=== PATIENT | male | born 1965 | race Caucasian/White ===

== ENCOUNTER 2019-01-15 14:32 | Emergency (ER) | payer BC, SELFPAY ==
[2019-01-15 14:33] VITALS: BP 144/73; PULSE 68; RESP 16; TEMP 36.6; O2SAT 97; BMI 24.5
--- NOTE | 2019-01-15 15:13 | CT_ITS ---
STUDY: CT BRAIN WITHOUT CONTRAST REASON FOR EXAM: Male, 53 years old. Headache. Unsteady gait beginning this morning. RADIATION DOSAGE (If Supplied By Facility): CTDIvol = ( 44.99 ) mGy, DLP = ( 796.11 ) mGycm TECHNIQUE: Transaxial CT imaging of the brain was performed without administration of intravenous contrast material. Individualized dose optimization techniques were used for this CT. COMPARISON: No relevant priors. FINDINGS: Normal soft tissue structures. Normal calvarium. Normal size ventricles and extra-axial spaces for the patient's age. Normal white matter tracts of the cerebral hemispheres. Normal basal ganglia and thalami. Normal brainstem. Normal cerebellum. There is no intracranial hemorrhage. There are no findings of an acute ischemic infarction. There is mucoperiosteal reaction within the ethmoid air cells. CT/Brain/Head without Contrast IMPRESSION: 1. Normal unenhanced CT scan of the brain. 2. Ethmoid sinusitis. Electronically Signed: Murali Dalton DO at 16:09 EDT Tel [phone], Service support ,
--- NOTE | 2019-01-15 15:14 | ED.VISSUMM ---
- ER Visit Summary Date of Service: 01/15/19 Chief Complaint: My equilibrium is off History of Present Illness: The patient is a 53 M history of arthritis and high cholesterol. Patient states that she woke up this morning he just felt like his equilibrium is off. Denies room spinning. Also has a mild frontal headache. No vomiting. No head trauma. He is on no blood thinners. No history of TIA or CVA. No cardiac history. States he is never felt like this before. Physical Examination: Middle-aged male. No acute distress. Initial blood pressure 144/73. Otherwise vital signs stable afebrile. No distress. HEENT exam normal. Pupils round reactive light. No facial droop. Normal speech. No signs of trauma. Neck nontender. Lungs clear to auscultation bilaterally. Heart regular rhythm no murmur. Abdomen soft nontender. Remedies moves all 4. Calves nontender no edema. Neurologically he is awake alert with no focal motor or sensory deficits. NIH score of 0. Normal motor strength to both hands. Dorsi plantar flexion intact. Fingertip to nose all within normal limits. Test Results: CBC normal. Chemistries unremarkable. Gap of [address] brain no acute abnormality. Ethmoid sinus congestion. Read by the radiologist and reviewed by me. Emergency Department Course and Treatment: Middle-aged male unremarkable exam. Screening labs and CT brain to be obtained. Repeat exam patient is doing well. He thinks this is related to anxiety and stress. I do not feel he needs to be admitted to the hospital with an unremarkable exam and normal labs and imaging. He will be discharged home to follow-up as an outpatient. Treatment Plan: Follow-up with his primary care physician. Disposition: Discharge Impression: Acute dizziness uncertain etiology This note was generated with [employer] software. It may contain incorrect words, spelling, and punctuation that were not noted in review of the chart prior to signing ED Disposition - Plan for ED Patient: Referrals: [facility] Doctor,Out of [NON-STAFF] -
[2019-01-15 15:34] LABS: Absolute Lymphocyte Count 2.95 X10^3/ul (0.83-4.51); Basophil# 0.03 X10^3/uL; Basophil% 0.3 % (0-1); Eosinophil# 0.47 X10^3/uL; Eosinophils% 5.2 % (0-5); Hematocrit 48.8 % (40-54); Hemoglobin 16.3 g/dl (13.0-16.5); Lymphocyte # 2.95 X10^3/ul (4.0); Lymphocyte % 32.6 % (19-41); Mean Corp Hgb Conc 33.4 g/gl (32-36); Mean Corpuscular Hgb 31.2 pg (27.0-32.0); Mean Corpuscular Volume 93.5 fL (80-94); Mean Platelet Vol. 10.6 fl (6.2-12.0); Monocyte# 0.55 X10^3/uL; Monocyte% 6.1 % (0-10); Neutrophil # 5.03 X10^3/uL (2.7-7.7); Neutrophil % 55.7 % (47-70); Platelet Count 244 K/mm3 (150-450); RBC Distribution Width CV 13.5 % (11.6-14.6); RBC Distribution Width SD 45.8 fl (35.1-43.9); Red Blood Count 5.22 M/mm3 (4.6-6.2)
[2019-01-15 15:36] LABS: POSITIVE COUNT NO; POSITIVE DIFFERENTIAL NO; POSITIVE MORPHOLOGY NO
[2019-01-15 15:45] LABS: Anion Gap 2 (5-15); BUN 10 mg/dL (7-18); BUN/Creat Ratio 11.6 RATIO (10-20); Calcium,Total 8.7 mg/dL (8.5-10.1); Chloride 110 mmol/L (98-107); Creatinine, Serum 0.86 mg/dL (0.70-1.30); EST Glomerular Filtration Rate 99 mL/min (>60); Est Glom Filt Rate - Afr Amer 120 mL/min (>60); Estimated Creatinine Clearance 108.23 ml/min; Glucose 87 mg/dL (74-106); Potassium 4.2 mmol/L (3.5-5.1); Sodium Level 140 mmol/L (136-145)
--- NOTE | 2019-01-15 16:31 | ED.DEP ---
ED Disposition - Plan for ED Patient: Disposition: Home or Assisted Living Instructions: ED Dizziness [facility] Referrals: [facility],Out of [NON-STAFF] - 3-5 Days Additional Instructions: Your labs and CAT scan were unremarkable today. Follow-up with your primary care physician.
[2019-01-15] MEDS: Acetaminophen 500 MG Tablet 1000 MG PO (16:45)
[2019-01-15 16:46] VITALS: BP 122/86; PULSE 84; RESP 18
== END 2019-01-15 16:55 | disposition home or self-care (01) ==
PROVIDERS: Emergency Provider Emergency Medicine; Family Provider Family Medicine; PCP Family Medicine
DX: R42 Dizziness and giddiness (principal); E78.00 Pure hypercholesterolemia, unspecified; F17.210 Nicotine dependence, cigarettes, uncomplicated
CPT/HCPCS: 70450; 80048; 85025; 99284

== ENCOUNTER → 2019-01-30 08:45 | Outpatient (CLI) | payer BC, SELFPAY ==
[2019-01-15 14:33] VITALS: BMI 24.5
--- NOTE | 2019-01-30 08:47 | ECHOCS_ITS ---
Reason For Study: Possible TIA Procedure This was a 2D Doppler, Color Flow transthoracic echocardiogram. The study was technically difficult. Contrast injection was performed. Exam performed in department. Left Ventricle Normal size and thickness. Left ventricular systolic function is normal. The estimated ejection fraction is 50-55 %. Normal diastology for age. mild apical hypokinesis. Right Ventricle Normal right ventricle. Normal systolic function. Atria Normal left atrium. Normal right atrium. No doppler evidence for ASD. Mitral Valve There is no mitral valve stenosis. No mitral valve insufficiency. Tricuspid Valve No significant tricuspid stenosis. Unable to estimate RV systolic pressure due to insufficient tricuspid regurgitant envelope. Trivial tricuspid valve insufficiency. Aortic Valve Aortic sclerosis, no stenosis. There is no aortic stenosis. No aortic valve insufficiency. Pulmonic Valve There is no pulmonic valvular stenosis. No pulmonic valve insufficiency. Great Vessels Normal aortic root. Pericardium/Pleural No pericardial effusion. Medication 22 gauge I.V. with prn adaptor inserted into right arm. Diluted definity 4ml given slow IV push to enhance endocardial definition. Performed a rapid injection of agitated mix of 9 cc saline and 1cc air to assess for atrial septal defect. MMode/2D Measurements & Calculations LVIDd: 4.8 cm IVSd: 0.86 cm LAV(MOD-sp4): 30.9 ml LVIDs: 3.8 cm LVPWd: 0.85 cm RVDd: 3.3 cm FS: 21.2 % LVAd ap4: 36.1 cm2 SV(MOD-sp4): 61.6 ml SV(sp4-el): 65.7 ml EDV(MOD-sp4): 123.0 ml EDV(sp4-el): 128.4 ml LVAs ap4: 23.3 cm2 ESV(MOD-sp4): 61.4 ml ESV(sp4-el): 62.7 ml EF(MOD-sp4): 50.1 % EF(sp4-el): 51.2 % LA A4 area: 14.4 cm2 RA A4 area: 15.2 cm2 Time Measurements MV dec time: 0.27 sec Doppler Measurements & Calculations MV E max alexx: 69.6 cm/sec Lat Peak E' Alexx: 11.2 cm/sec Med Peak E' Alexx: 10.2 cm/sec MV A max alexx: 63.6 cm/sec E/E' lat: 6.2 E/E' med: 6.8 MV E/A: 1.1 MV V2 max: 78.3 cm/sec MV P1/2t max alexx: 78.3 cm/sec Ao V2 max: 114.6 cm/sec MV max P.5 mmHg MV P1/2t: 93.6 msec Ao max P.3 mmHg MV V2 mean: 47.7 cm/sec Ao V2 mean: 81.6 cm/sec MV mean P.1 mmHg MV dec slope: 245.1 cm/sec2 Ao mean P.9 mmHg MV V2 VTI: 25.3 cm MVA(P1/2t): 2.4 cm2 Ao V2 VTI: 23.0 cm LV V1 max: 89.7 cm/sec PA V2 max: 85.7 cm/sec LV V1 max P.2 mmHg LV V1 mean P.6 mmHg LV V1 mean: 57.6 cm/sec LV V1 VTI: 19.2 cm Interpretation Summary The study was technically difficult. Diluted definity 4ml given slow IV push to enhance endocardial definition. Left ventricular systolic function is normal. The estimated ejection fraction is 50-55 %. Normal diastology for age. Aortic sclerosis, no stenosis. mild apical hypokinesis No intracardiac clot seen The study was technically difficult. Ordering Physician: Bonita Gaines Referring Physician: Bonita Gaines Performed By: Lalo Saldivar RCS
--- NOTE | 2019-01-30 08:47 | CDU_ITS ---
Reason For Study: TIA Rt. Velocities/BP Lt. Velocities/BP Prox CCA 85.2/26.5 cm/sec. Prox CCA 94.3/34.3 cm/sec. Mid CCA 85.2/31.7 cm/sec. Mid CCA 91.7/36.9 cm/sec. Dist CCA 83.9/31.7 cm/sec. Dist CCA 79.9/34.3 cm/sec. Prox ICA 70.8/29.1 cm/sec. Prox ICA 45.4/19.0 cm/sec. Mid ICA 70.8/26.5 cm/sec. Mid ICA 84.9/84.9/43.2 cm/sec. Dist ICA 79.96/40.8 cm/sec. Dist ICA 78.3/39.9 cm/sec. Rt. ICA/CCA = .9. Lt. ICA/CCA = .9. Prox ECA 82.6/18.6 cm/sec. Prox ECA 85.2/22.6 cm/sec. Rt. Vert. 43.4/21.3 cm/sec. Lt. Vert. 23.8/9.2 cm/sec. Right Extracranial There is intimal thickening but no significant atherosclerotic plaque noted in the right common carotid artery. There is intimal thickening but no significant atherosclerotic plaque noted in the right internal carotid artery. There is intimal thickening but no significant atherosclerotic plaque noted in the right external carotid artery. Antegrade flow is noted in the right vertebral artery. Left Extracranial There is intimal thickening but no significant atherosclerotic plaque noted in the left common carotid artery. There is intimal thickening but no significant atherosclerotic plaque noted in the left internal carotid artery. There is intimal thickening but no significant atherosclerotic plaque noted in the left external carotid artery. Antegrade flow is noted in the left vertebral artery. Procedure Carotid Duplex [id number]. The exam was diagnostic. Exam performed in department. Interpretation Summary No significant atherosclerotic plaque or stenosis noted in the internal carotid arteries bilaterally. Flow within the vertebral arteries is antegrade bilaterally. Ordering Physician: Bonita Gaines Performed By: Montana Perez RVT
== END ==
LOC: CVS 08:45
PROVIDERS: Family Provider Family Medicine; PCP Family Medicine; Referring Provider Family Medicine; Visit Provider Family Medicine
DX: R42 Dizziness and giddiness (principal); F17.200 Nicotine dependence, unspecified, uncomplicated
CPT/HCPCS: 93306; 93880; Q9957; A4216; C8929

== ENCOUNTER 2019-08-16 20:15 | Emergency (ER) | payer BC, SELFPAY ==
[2019-08-16 20:15] VITALS: BP 132/83; PULSE 84; RESP 16; TEMP 36.7; O2SAT 98; BMI 24.5
--- NOTE | 2019-08-16 21:57 | ED.DCSUM_ITS ---
- ER Visit Summary Date of Service: 08/16/19 Chief Complaint: Gum abscess History of Present Illness: The patient is a 53 M patient past medical history. Patient is an abscess on his lower lip and gum for about 2 weeks. Painful. He denies any fever. Physical Examination: Well-appearing middle-aged male. Vital signs are stable afebrile. No trouble swallowing or breathing. HEENT exam. He has very poor dentition. Multiple missing teeth. Decaying teeth and cavities. His lower lip in the midline between the lip and gum there is an abscess. Is tender to palpation. There is no swelling to the face or the neck. No trouble swallowing or breathing. No lymphadenopathy. Lungs clear to auscultation. Heart regular rhythm no murmur. Abdomen soft nontender. Patient is moving all 4 extremities. He is neurovascular intact. Test Results: None Emergency Department Course and Treatment: I was going to I&D the abscess. When I went back into reevaluate the patient ended drained spontaneously on its own. There was no longer any fluctuance he can easily open and close his mouth. This does not need to be drained at this time. Treatment Plan: Pen-Vee K 500 4 times daily for 10 days. Warm salt water gargling. Follow-up with a dentist. Disposition: Discharge Impression: Dental abscess spontaneously drained on its own. This note was generated with [employer] dictation software. It may contain incorrect words, spelling, and punctuation that were not noted in review of the chart prior to signing ED Disposition - Plan for ED Patient: Referrals: Bonita Gaines MD [Primary Care Provider] -
--- NOTE | 2019-08-16 21:59 | ED.DEP ---
ED Disposition - Plan for ED Patient: Disposition: Home or Assisted Living Instructions: Dental Abscess Prescriptions: Penicillin Vk [Pen-Vee K 250MG] 500 mg PO 4X/DAY 10 Days #40 tab Prescription Printed Referrals: Bonita Gaines MD [Primary Care Provider] - As Needed Additional Instructions: Warm salt water gargling 4 times a day. Tylenol Motrin for pain. Follow-up with a dentist. The antibiotic penicillin 4 times a day till gone. Prescriptions written for 10 days.
[2019-08-16] MEDS: Penicillin Vk 250 MG Tablet 500 MG PO (22:07)
[2019-08-16 22:14] VITALS: BP 130/80; PULSE 68; RESP 18; O2SAT 99
== END 2019-08-16 22:16 | disposition home or self-care (01) ==
PROVIDERS: Emergency Provider Emergency Medicine; Family Provider Family Medicine; PCP Family Medicine
DX: K04.7 Periapical abscess without sinus (principal); Z72.0 Tobacco use
CPT/HCPCS: 41800; 64402; 99283

== ENCOUNTER 2019-10-17 23:29 | Emergency (ER) | payer BC, SELFPAY ==
[2019-10-17 23:30] VITALS: BP 100/65; PULSE 77; RESP 15; TEMP 36.4; O2SAT 100; BMI 25.9
--- NOTE | 2019-10-17 23:43 | US_ITS ---
STUDY: SCROTUM ULTRASOUND REASON FOR EXAM: Male, 53 years old. Pain. TECHNIQUE: Ultrasound evaluation of the scrotum was performed with color Doppler and static garcia-scale imaging. COMPARISON: None. FINDINGS: RIGHT Testicle: No mass, normal echogenicity. Mildly increased arterial and venous Doppler flow. Measures 4.7 x 3.1 x 2.6 cm. Epididymis: Mildly hyperemic. Contains an incidental 0.6 cm diameter cyst. Hydrocele: Moderate. Varicocele: None. LEFT Testicle: No mass, normal echogenicity. Normal arterial and venous Doppler flow. Measures 4.2 x 2.2 x 2.2 cm. Epididymis: Unremarkable. Hydrocele: Trace. Varicocele: None. US/Testicular with Arterial Flow IMPRESSION: Right epididymitis/orchitis with moderate right-sided hydrocele. Electronically Signed: Hussain Schwartz, at 1:54 EST Tel , Service support ,
[2019-10-17] MEDS: HYDROmorphone 1 MG/ML Syringe IV (23:55)
[2019-10-17] MEDS: Ondansetron 4 MG/2 ML Vial IV (23:56)
[2019-10-17 23:58] LABS: Mucous, Urine 0 SEEN /hpf (<or=2+)
[2019-10-17 23:59] LABS: Color, Urine Yellow (Yellow); Glucose, Dipstick Normal (Normal); Ketone-Dipstick 50 mg/dl (Negative); Leukocyte Esterase-Dipstick 500 /ul (Negative); Nitrite-Dipstick Negative (Negative); Occult Blood-Urine 150 /ul (Negative); Protein-Dipstick 100 mg/dl (Negative); Urine Bilirubin Dipstick Negative (Negative); Urine Clarity Sl. Cloudy (Clear); Urine Urobilinogen 1 mg/dl (Normal)
[2019-10-18 00:06] LABS: Absolute Lymphocyte Count 3.54 X10^3/uL (0.83-4.51); Absolute Neutrophil Count 11.5 X10^3/uL (2.0-7.7); Basophil# 0.06 X10^3/uL; Basophil% 0.4 % (0-1); Eosinophil# 0.42 X10^3/uL; Eosinophils% 2.6 % (0-5); Hematocrit 48.8 % (40-54); Hemoglobin 15.5 g/dL (13.0-16.5); Lymphocyte # 3.54 X10^3/ul (4.0); Lymphocyte % 21.5 % (19-41); Mean Corp Hgb Conc 31.8 g/dL (32-36); Mean Corpuscular Hgb 29.5 pg (27.0-32.0); Mean Platelet Vol. 10.3 fl (6.2-12.0); Monocyte% 5.5 % (0-10); NRBC Flagged by Analyzer 0 % (0-5); Neutrophil # 11.47 X10^3/uL (2.7-7.7); Neutrophil % 69.6 % (47-70); Platelet Count 260 K/mm3 (150-450); RBC Distribution Width CV 13.7 % (11.6-14.6); Red Blood Count 5.25 M/mm3 (4.6-6.2); White Blood Count 16.5 K/mm3 (4.4-11.0)
[2019-10-18 00:08] LABS: Bacteria 1+ /hpf (None Seen); Red Blood Cells-Urine 0-5 SEEN /hpf (0-5); Squamous Epithelial Cells - UA 0-5 SEEN /hpf (0-5); White Blood Cells 10-25 SEEN /hpf (0-5)
[2019-10-18 00:20] LABS: Anion Gap 4 (5-15); BUN 12 mg/dL (7-18); BUN/Creat Ratio 10.8 RATIO (10-20); Calcium,Total 8.8 mg/dL (8.5-10.1); Chloride 107 mmol/L (98-107); Creatinine, Serum 1.11 mg/dL (0.70-1.30); EST Glomerular Filtration Rate 74 mL/min (>60); Est Glom Filt Rate - Afr Amer 90 mL/min (>60); Estimated Creatinine Clearance 83.86 ml/min; Glucose 111 mg/dL (74-106); Potassium 3.9 mmol/L (3.5-5.1); Sodium Level 139 mmol/L (136-145)
[2019-10-18 01:29] VITALS: BP 155/86; PULSE 86; RESP 16; O2SAT 98
--- NOTE | 2019-10-18 02:05 | ED.DCSUM_ITS ---
- ER Visit Summary Date of Service: 10/18/19 Chief Complaint: Right testicle pain History of Present Illness: The patient is a 53 M with right testicle pain that started around 8 PM. No other symptoms. Physical Examination: Afebrile and vital signs unremarkable. Right testicle is enlarged and exquisitely tender. Scrotum slightly enlarged. Otherwise unremarkable. Test Results: Urinalysis shows UTI. Cultures pending. White count 16.5. He is not septic. Chemistry panel unremarkable. Gonorrhea and Chlamydia testing are pending. Ultrasound showed right epididymitis and orchitis with hydrocele. Emergency Department Course and Treatment: Patient will be treated with Levaquin and Rocephin. Cultures pending. He will be treated with pain medicine and follow-up with urology. Treatment Plan: As above Disposition: Discharge Impression: 1. Right epididymitis/orchitis This note was generated with [employer] dictation software. It may contain incorrect words, spelling, and punctuation that were not noted in review of the chart prior to signing ED Disposition - Plan for ED Patient: Referrals: Bonita Gaines MD [Primary Care Provider] -
--- NOTE | 2019-10-18 02:07 | ED.DEP ---
ED Disposition - Plan for ED Patient: Instructions: Epididymitis, Orchitis Prescriptions: Levofloxacin [Levaquin] 500 mg PO DAILY 9 Days #9 tab Prescription Printed Oxycodone HCl/Acetaminophen [Percocet 5/325] 1 tab PO Q6H PRN PRN 3 Days #12 tab PRN Reason: Pain Prescription Printed Referrals: Galo Keenan MD [STAFF PHYSICIAN] -
[2019-10-18] MEDS: levoFLOXacin 500 MG Tablet PO (02:30)
[2019-10-18] MEDS: Ceftriaxone 500 MG Vial 250 MG IM (02:31)
[2019-10-18 02:48] LABS: Chlamydia Trachomatis by PCR Negative (Negative); Neisserai gonorrhoeae by PCR Negative (Negative); Probe Check PASS; Sample Adequacy Control PASS; Specimen Processing Control PASS
[2019-10-18 02:52] VITALS: BP 110/72; PULSE 86; RESP 17; O2SAT 97
--- NOTE | 2019-10-18 02:52 | ED.RN ---
SHOT TIME OBSERVED FOR GREATER THAN 15MINUTES, NO REACTION NOTED BY THIS RN. PT D/C.
== END 2019-10-18 02:54 | disposition home or self-care (01) ==
LOC: ED 10-18 00:03
PROVIDERS: Emergency Provider Emergency Medicine; PCP Family Medicine
DX: N45.3 Epididymo-orchitis (principal); Z72.0 Tobacco use
CPT/HCPCS: 76870; 80048; 81001; 85025; 87086; 87088; 87186; 87491; 87591; 93976; 96372; 96374; 96375; 99284; A4216; J2405

== ENCOUNTER 2019-11-20 02:43 | Emergency (ER) | payer BC, SELFPAY ==
[2019-11-20 02:44] VITALS: PULSE 97; RESP 20; TEMP 36.5; O2SAT 99; BMI 25.1
[2019-11-20 02:49] VITALS: BP 94/78; PULSE 97; RESP 20; TEMP 36.5; O2SAT 99
--- NOTE | 2019-11-20 02:50 | US_ITS ---
STUDY: SCROTUM ULTRASOUND REASON FOR EXAM: Male, 53 years old. RT TESTICULAR PAIN right testicular pain TECHNIQUE: Ultrasound evaluation of the scrotum was performed with color Doppler and static garcia-scale imaging. COMPARISON: None. FINDINGS: RIGHT TESTICLE INTRATESTICULAR: There is a normal size of the right testicle. The right testicle measures 3.2 x 2.8 x 2.4 cm. There is a homogenous echotexture. There is normal arterial and normal venous vascularity. There is no demonstrated right testicular mass or cyst. EXTRATESTICULAR: The epididymis is enlarged. The epididymis head measures 1.4 x 1.1 x 1.2 cm. There is increased (hyperemic) vascularity of the epididymis. There is no demonstrated epididymal cystic structure. There is no demonstrated hydrocele. There is no demonstrated varicocele. There is no demonstrated extratesticular mass or cyst. LEFT TESTICLE INTRATESTICULAR: There is a normal size of the left testicle. The left testicle measures 4.2 x 2.6 x 2 cm. There is a homogenous echotexture. There is normal arterial and normal venous vascularity. There is no demonstrated left testicular mass or cyst. EXTRATESTICULAR: The epididymis is normal in size. The epididymis head measures 0.9 x 0.8 x 0.8 cm. There is normal vascularity of the epididymis. There is no demonstrated epididymal cystic structure. There is no demonstrated hydrocele. There is no demonstrated varicocele. There is no demonstrated extratesticular mass or cyst. US/Testicular with Arterial Flow IMPRESSION: Right epididymitis. Electronically Signed: Junior Lerner, at 4:07 EDT Tel , Service support ,
[2019-11-20] MEDS: HYDROcodone Bitartrate/Apap 5/325 Tablet PO (02:53)
[2019-11-20 02:54] VITALS: BP 120/79
[2019-11-20 02:54] LABS: Mucous, Urine 0 SEEN /hpf (<or=2+); Red Blood Cells-Urine 0 SEEN /hpf (0-5)
[2019-11-20 02:59] LABS: Color, Urine Yellow (Yellow); Glucose, Dipstick Normal (Normal); Ketone-Dipstick Negative (Negative); Leukocyte Esterase-Dipstick 500 /ul (Negative); Nitrite-Dipstick Negative (Negative); Occult Blood-Urine 50 /ul (Negative); Protein-Dipstick Negative (Negative); Urine Bilirubin Dipstick Negative (Negative); Urine Clarity Clear (Clear); Urine Urobilinogen Normal (Normal); Urine pH 6.5 (5.0 - 8.0)
[2019-11-20 03:09] LABS: Bacteria RARE /hpf (None Seen); Squamous Epithelial Cells - UA 0-5 SEEN /hpf (0-5); White Blood Cells 5-10 SEEN /hpf (0-5)
--- NOTE | 2019-11-20 03:50 | ED.DCSUM_ITS ---
- ER Visit Summary Date of Service: 11/20/19 Chief Complaint: Right testicular pain History of Present Illness: The patient is a 53 M who has right testicular pain. Started an hour ago. Denies any falls or trauma. It is worse when he touches it. He took nothing for this at home. He denies fevers. No dysuria. He had epididymoorchitis at the end of October. He took antibiotics and it got better. He did not follow-up with urology. Physical Examination: Vital signs are reviewed. exam reveals a penis that is normal. His right testicle is diffusely tender. It is enlarged. His scrotum shows no edema or erythema. The rest of his exam is unremarkable. Test Results: Shows 5-10 white blood cells. Ultrasound reveals epididymitis Emergency Department Course and Treatment: Patient was given [place]. He does have epididymitis. No signs of torsion. He was given a dose of morphine for continued pain and Levaquin. I will send him home with Percocet and Levaquin. He will be given urology follow-up. Treatment Plan: [] Disposition: Discharge Impression: Right epididymitis This note was generated with [employer] dictation software. It may contain incorrect words, spelling, and punctuation that were not noted in review of the chart prior to signing ED Disposition - Plan for ED Patient: Disposition: Home or Assisted Living Instructions: Epididymitis Prescriptions: levoFLOXacin tablet [Levaquin] 500 mg PO DAILY #13 tab Transmission Status: Pending to [id number] [place] Oxycodone HCl/Acetaminophen [Percocet 5/325] 1 tablet PO Q6H PRN PRN 3 Days #12 tablet PRN Reason: Pain Transmission Status: Sent to [id number] [place] Referrals: Bonita Gaines MD [Primary Care Provider] -
[2019-11-20] MEDS: Morphine 4 MG/ML Syringe SC (04:19)
[2019-11-20] MEDS: levoFLOXacin 500 MG Tablet PO (04:19)
[2019-11-20 04:22] VITALS: BP 125/74; PULSE 99; RESP 18; TEMP 36.6; O2SAT 100
== END 2019-11-20 04:40 | disposition home or self-care (01) ==
PROVIDERS: Emergency Provider Emergency Medicine; PCP Family Medicine
DX: N45.1 Epididymitis (principal); Z72.0 Tobacco use; E78.00 Pure hypercholesterolemia, unspecified; Z79.899 Other long term (current) drug therapy
CPT/HCPCS: 76870; 81001; 93976; 96372; 99284

== ENCOUNTER 2020-04-27 02:10 | Emergency (ER) | payer BC, SELFPAY ==
[2020-04-27 02:11] VITALS: BP 141/83; PULSE 89; RESP 16; TEMP 36.6; O2SAT 98; BMI 26.4
[2020-04-27 02:17] VITALS: BP 128/80
--- NOTE | 2020-04-27 02:47 | RAD_ITS ---
STUDY: X-RAY - LUMBAR SPINE REASON FOR EXAM: Male, 54 years old. SLIPPED 2 WEEKS AGO AT WORK -- CAUGHT HIMSELF BEFORE ACTUALLY FALLING -- C/O SEVERE LBP X 2 WEEKS TECHNIQUE: 3 view(s) of the lumbar spine were obtained. COMPARISON: None FINDINGS: There is a transitional vertebra, which we will assume represents complete sacralization of the L5 vertebra. Normal lumbar lordosis. There is no substantial scoliosis. There is grade 1 retrolisthesis at the L1-2 and L2-3 levels, which appears to be on a degenerative basis. Normal vertebral bodies. There is multilevel spondylosis. There is multi-level degenerative disc disease with multi-level disc space narrowing. There is atherosclerotic calcification of the abdominal aorta without a demonstrated aneurysm. RAD/Lumbar Spine 2 or 3 Views IMPRESSION: Degenerative changes of the spine, as detailed above. Minimal retrolisthesis at the L1-2 and L2-3 levels, on a degenerative basis. No demonstrated fracture. Electronically Signed: Pardeep Cat MD at 3:24 EDT , Service support ,
--- NOTE | 2020-04-27 02:48 | ED.DCSUM_ITS ---
History of Present Illness Chief Complaint: Back Informant: Patient Narrative: Patient stated that he slipped on some point while at work 2 weeks ago and has been having pain in his low back. No radiation. Tried to tough it out but the pain is been persistent. He has been occasionally taking anti-inflammatories but not consistently. Current severity is moderate. Worse by movement. Relieved by laying flat and resting. Has had difficulty working after the incident. No history of disc herniation per patient. No loss of bowel or bladder or other red flag symptoms of cauda equina. Past Medical History - Allergies and Home Meds Allergies/Adverse Reactions: Allergies erythromycin base Allergy (Verified 04/27/20 02:11) Alicia Primary Care Physician: Bonita Gaines MD [Primary Care Provider] - Prior records reviewed: Yes Past Medical History: - - Reviewed Surgical History: - - Reviewed Smoking Status: Current every day smoker Alcohol: None Drugs: None Review of Systems General: Denies: Chills, Fever, Sweats Eyes: Denies: Visual changes - bilaterally, Diplopia ENT: Denies: Rhinorrhea, Sore throat Cardiovascular: Denies: Chest pain, Palpitations Respiratory: Denies: Dyspnea, Cough, Dyspnea on exertion Gastrointestinal: Denies: Abdominal pain, Nausea, Vomiting, Diarrhea, Melena, Hematochezia Genitourinary: Denies: Dysuria, Hematuria, Frequency Musculoskeletal: Reports: Back pain. Denies: Extremity Pain Skin: Denies: Rash, Wounds Neurological: Denies: Headache, Weakness, Numbness Physical Exam Vital Signs/Narrative: Vital Signs Temp Pulse Resp BP Pulse Ox 04/27/20 02:17 128/80 H 04/27/20 02:11 97.9 F 89 16 141/83 H 98 General: Well nourished, Well developed, No Acute Distress Head: Normocephalic, Atraumatic Eyes: Perrl, EOMI ENT: Moist mucous membranes, No rhinorrhea Neck: Supple, Nontender Cardiovascular: Regular rate, Regular rhythm, No murmurs Respiratory: No distress, CTA bilaterally, Chest nontender Abdomen: Soft, Nontender, Nondistended, Normal bowel sounds Back: Normal Inspection, Spinal tenderness, - - Patient has lower lumbar diffuse tenderness. Decreased range of motion secondary to pain all cates Extremities: Nontender, No edema Skin: Normal color, No rash Neurological: Alert, Oriented x3, Cranial nerves II-XII grossly intact, Normal Strength, Normal Sensation Psychological: Normal affect, Normal Mood Diagnostic/Tx/Re-eval - Medical Decision Making Patient given a shot of Toradol and morphine. Lumbar x-ray series obtained. No fracture noted. Chronic degenerative changes noted. Patient did feel better after treatment. We will follow-up with Worker's Comp. He may need outpatient MRI. He could have a herniated disc. This could be a muscle strain as well. There is no evidence of cauda equina. I do not feel he needs an emergent MRI from the emergency department and will be given a short course of Vicodin for home ED Disposition - Plan for ED Patient: Disposition: Home or Assisted Living Diagnosis: Lumbar back pain Instructions: ED Back Pain Acute or Chronic Prescriptions: Hydrocodone Bitart/Apap 5-325 [[place] 5MG-325MG] 1 - 2 tab PO Q6H PRN PRN 3 Days #10 tab PRN Reason: Pain Prescription Printed Referrals: [facility] [GROUP OF PHYSICIANS] -
[2020-04-27] MEDS: Morphine 4 MG/ML Syringe IM (02:55)
[2020-04-27] MEDS: Ketorolac 15 MG/ML Vial IM (02:55)
[2020-04-27 04:00] VITALS: RESP 16
== END 2020-04-27 04:00 | disposition home or self-care (01) ==
PROVIDERS: Emergency Provider Emergency Medicine; PCP Family Medicine
DX: M54.5 Low back pain (principal); F17.200 Nicotine dependence, unspecified, uncomplicated
CPT/HCPCS: 72100; 96372; 99282

== ENCOUNTER → 2020-05-12 07:17 | Outpatient (CLI) | payer OTHER, BC, SELFPAY ==
[2020-05-07 10:38] VITALS: BMI 26.4
--- NOTE | 2020-05-12 07:20 | MRI_ITS ---
STUDY: MRI LUMBAR SPINE WITHOUT CONTRAST REASON FOR EXAM: Male, 54 years old. LUMBAR STRAIN -- fall 1 month ago, pain low back and left buttock TECHNIQUE: Standardized fat and water weighted pulse sequences were obtained in the sagittal and axial planes. COMPARISON: X-ray dated 04/27/2020 FINDINGS: Normal lumbar lordosis. There is no substantial scoliosis. Normal conus medullaris that terminate s at the L1 L1-2: There is moderate disc space narrowing and endplates spondylosis. Mild disc bulge with small (0.5 x 1.5 cm) superiorly directed left paracentral extrusion without significant central canal or foraminal stenosis. L2-3: There is moderate disc space narrowing and endplates spondylosis. Mild disc bulge and retrolisthesis without significant central canal or foraminal stenosis. L3-4: There is moderate disc space narrowing and endplates spondylosis. Moderate disc bulge and minimal retrolisthesis without significant central canal stenosis. There is mild right and mild left foraminal stenosis. L4-5: There is mild disc space narrowing and endplates spondylosis. Moderate disc bulge asymmetric to the right with moderate right foraminal stenosis. No significant central canal or left foraminal stenosis. L5-S1: There is moderate disc space narrowing and endplates spondylosis. Moderate disc osteophyte complex and facet arthropathy asymmetric to the right with moderate right foraminal stenosis. No significant central canal or left foraminal stenosis. Normal visualized sacral ala. MRI/Spine Lumbar (Routine) IMPRESSION: L1/L2: Small left paracentral extrusion without compression. L4/L5: Moderate right foraminal stenosis. L5/S1: Moderate right foraminal stenosis. Electronically Signed: Israel Addison MD at 8:21 EDT Tel , Service support ,
== END ==
PROVIDERS: PCP Family Medicine; Referring Provider Physician Assistant Surgical; Visit Provider Physician Assistant Surgical
DX: S39.012A Strain of muscle, fascia and tendon of lower back, initial encounter (principal)
CPT/HCPCS: 72148

== ENCOUNTER 2020-06-24 12:01 | Emergency (ER) | payer BC, SELFPAY ==
[2020-05-26 13:18] VITALS: BMI 26.4
[2020-06-24 12:02] VITALS: BP 116/78; PULSE 119; RESP 18; TEMP 36.6; O2SAT 99; BMI 25.7
--- NOTE | 2020-06-24 12:16 | CT_ITS ---
STUDY: CT PELVIS WITH CONTRAST REASON FOR EXAM: Male, 54 years old. PERIRECTAL ABCESS RADIATION DOSAGE (If Supplied By Facility): CTDIvol = ( 28.20 ) mGy, DLP = ( 1000.12 ) mGycm TECHNIQUE: Transaxial imaging of the pelvis was performed without oral contrast. IV 100mL Isovue-300 was administered intravenously. Individualized dose optimization techniques were used for this CT. COMPARISON: None. FINDINGS: Normal urinary bladder. There is a 2.4 cm x 2.1 cm fluid collection with irregular margins in the posterior aspect of the perineum in the midline. This may represent a perineal abscess. Incidental note is made of a small right hydrocele. Normal visualized small intestine. There are multiple colonic diverticula of the sigmoid colon consistent with chronic diverticulosis. There is no pelvic fluid. There is no pelvic lymphadenopathy or mass lesion. There is no demonstrated injury of the pelvic arteries. Small umbilical hernia containing fat. There are diffuse degenerative changes of the visualized lumbar spine. CT/Pelvis WITH IV Contrast IMPRESSION: Findings in keeping with a 2.4 cm x 2.1 cm localized abscess in the posterior aspect of the perineum. Sigmoid diverticulosis. Small right hydrocele. Electronically Signed: Marcial Kaur, at 13:38 EDT , Service support ,
--- NOTE | 2020-06-24 12:28 | ED.DCSUM_ITS ---
- ER Visit Summary Date of Service: 06/24/20 Chief Complaint: [Concern for perineal abscess] History of Present Illness: The patient is a 54 M [presents to the emergency department with complaint of swelling to his perineum that started 2 weeks ago. Patient states that he is prone to getting boils. Patient states initially it opened up after a couple of days and drained and felt like all would be resolved. Patient states that over the last 5 days has had increasing pain and discomfort as well as swelling. He denies any fevers. He denies chills or sweats. Patient has no medical history.] Physical Examination: [HEENT-PERRLA, EOMI. Cranial nerves II through XII grossly intact. TMs clear. Mucous membranes moist. No adenopathy. Cardiovascular-regular rate and rhythm without murmur or ectopy Lungs-clear to auscultation, chest wall stable without crepitus or subcu emph ysema Abdomen-normoactive bowel sounds, soft, nontender, no rebound or rigidity, no peritoneal signs. exam-evaluation of patient's perineum reveals that he has some soft tissue fullness in the space between his rectum and scrotum that is tender to palpation. There are some faint erythema noted. Extremities-intact ?4, normal range of motion, normal pulses, atraumatic] Test Results: [CBC with differential obtained showed a white of 12.5, hemoglobin 15, hematocrit 48, placed 250. Chemistries unremarkable. CT scan of the pelvis with IV contrast obtained showed a perineal abscess measuring 2.4 x 2.1 cm with cellulitic changes.] Emergency Department Course and Treatment: [Results discussed with patient. Initially he was medicated with morphine 4 mg and Zofran 4 mg IV for pain. Patient requested sedation for I&D due to the amount of pain he was having to the area. I did discuss case with general surgery and they were comfortable with having me perform the I&D and they be happy to follow-up as an outpatient. Patient was consented for procedural sedation with propofol. He received a total of 100 mg of propofol with good sedation. Using a 11 blade a 2 cm incision was made into the central portion of the suspected abscess and the midline of the perineum. Immediately had return of foul-smelling purulent debris that was free-flowing. Wound was then packed with iodinated gauze. Patient received clindamycin 600 mg IV.] Treatment Plan: [Patient to follow-up with general surgeon on-call in 3 to 4 days. Patient advised to remove packing in 2 days. Advised to return if worsening pain increased swelling, fever, or condition should worsen anyway.] Disposition: [Discharged home in stable condition] Impression: [Perineal abscess with incision and drainage] This note was generated with [employer] dictation software. It may contain incorrect words, spelling, and punctuation that were not noted in review of the chart prior to signing ED Disposition - Plan for ED Patient: Referrals: Bonita Gaines MD [Primary Care Provider] -
[2020-06-24 12:59] LABS: Absolute Lymphocyte Count 1.97 X10^3/uL (0.83-4.51); Absolute Neutrophil Count 9.3 X10^3/uL (2.0-7.7); Basophil# 0.03 X10^3/uL; Basophil% 0.2 % (0-1); Eosinophil# 0.33 X10^3/uL; Eosinophils% 2.6 % (0-5); Hematocrit 47.6 % (40-54); Hemoglobin 15.4 g/dL (13.0-16.5); Lymphocyte # 1.97 X10^3/ul (4.0); Lymphocyte % 15.7 % (19-41); Mean Corp Hgb Conc 32.4 g/dL (32-36); Mean Corpuscular Hgb 29.8 pg (27.0-32.0); Mean Corpuscular Volume 92.1 fL (80-94); Mean Platelet Vol. 10.5 fl (6.2-12.0); Monocyte% 6.4 % (0-10); NRBC Flagged by Analyzer 0 % (0-5); Neutrophil # 9.34 X10^3/uL (2.7-7.7); Neutrophil % 74.8 % (47-70); Platelet Count 250 K/mm3 (150-450); RBC Distribution Width CV 13.3 % (11.6-14.6); RBC Distribution Width SD 45.4 fl (35.1-43.9); Red Blood Count 5.17 M/mm3 (4.6-6.2); White Blood Count 12.5 K/mm3 (4.4-11.0)
[2020-06-24 13:11] LABS: Anion Gap 3 (5-15); BUN 9 mg/dL (7-18); BUN/Creat Ratio 8.8 RATIO (10-20); Calcium,Total 8.8 mg/dL (8.5-10.1); Chloride 107 mmol/L (98-107); Creatinine, Serum 1.02 mg/dL (0.70-1.30); EST Glomerular Filtration Rate 81 mL/min (>60); Est Glom Filt Rate - Afr Amer 98 mL/min (>60); Estimated Creatinine Clearance 90.23 ml/min; Glucose 99 mg/dL (74-106); Potassium 3.9 mmol/L (3.5-5.1); Sodium Level 139 mmol/L (136-145)
[2020-06-24] MEDS: Morphine 4 MG/ML Syringe IV (13:42)
[2020-06-24] MEDS: Ondansetron 4 MG/2 ML Vial IV (13:42)
[2020-06-24 14:21] VITALS: PULSE 89; RESP 18; RESP 22
[2020-06-24 14:30] VITALS: BP 113/80; PULSE 87; RESP 19; O2SAT 97
--- NOTE | 2020-06-24 14:30 | DCINST.ED_ITS ---
ED Disposition - Plan for ED Patient: Instructions: ED Abscess Incision And Drainage Prescriptions: Clindamycin HCl [Cleocin] 300 mg PO Q6H #40 cap Prescription Printed Hydrocodone Bitart/Apap 5-325 [[place] 5MG-325MG] 1 tab PO Q4H PRN PRN 2 Days #10 tab PRN Reason: Pain Prescription Printed Referrals: Bonita Gaines MD [Primary Care Provider] - Matias Landis MD [STAFF PHYSICIAN] - 5-7 Days Additional Instructions: remove packing in 2 days
[2020-06-24] MEDS: Propofol 200 MG/20 ML Vial IV BOLUS (14:33)
[2020-06-24 14:35] VITALS: BP 115/81; PULSE 86; RESP 16; O2SAT 95
[2020-06-24 14:40] VITALS: BP 122/85; O2SAT 96
== END 2020-06-24 14:56 | disposition home or self-care (01) ==
LOC: ED 13:36
PROVIDERS: Emergency Provider Emergency Medicine; PCP Family Medicine
DX: L02.215 Cutaneous abscess of perineum (principal); Z72.0 Tobacco use
CPT/HCPCS: 46050; 72193; 80048; 85025; 96365; 96375; 99281; 99285; J7050; Q9967; A4216; J2405

== ENCOUNTER 2020-10-27 10:46 | Outpatient (RCR) | payer OTHER, BC, SELFPAY ==
--- NOTE | 2020-10-27 11:57 | HP.PTEVAL ---
Patient's Visit Information AMELIA MANN Jr. is a 54 year old M referred to Physical Therapy by Dr. Todd Vargas MD with a diagnosis of LOW BACK STRAIN. Date of Evaluation: 10/27/20 Physical Therapist: Galilea Delacruz PT, Cert MDT - Visit Plan Frequency: 2-3x /Week Duration: 4-6 Weeks Plan: ULTRASOUND, ELECTRICAL STIMULATION, MH/CP, POSTURE CORRECTION/STRENGTHENING, INSTRUCTION IN APPROPRIATE BODY MECHANICS AND ACTIVITY MODIFICATIONS. DLS STARTING WITH A NEUTRAL SPINE PROGRESSING ROM TOLERATED. KASSY LE ROM, STRETCHING AND STRENGTHENING. HEP INSTRUCTION. 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 VERY LABOR INTENSIVE AND FAST PACED REQUIRING BENDING, LIFTING AND TWISTING. WAS PUT ON LIGHT DUTY APR 2020. PRIOR TO GETTING HURT HE WAS DOING THIS JOB FOR ONE YEAR. LIVES WITH BUT SHE CURRENTLY HAS A BROKE HAND. Disability: NO. Present symptoms: CENTRAL AND LEFT LOW BACK PAIN THAT RADIATES DOWN LEG FREQUENTLY TO KNEE AND SOMETIMES TO HEEL AND ARCH OF FOOT. LLE SX'S ARE PAIN, NUMBNESS AND TINGLING. CONSTANT L BUTTOCK NUMBNESS. PATIENT DENIES RIGHT LE SX'S. Present since: APR 12 2020. Pain Scale: WORST 8/10, LEAST 4/10. Currently: 6/10 - PATIENT REPORTS THAT OVER-ALL HE IS WORSENING. HE REPORTS THE PAIN IN HIS BACK IS WORSENING. Commenced as a result of: WAS WALKING BETWEEN TWO MACHINES AT WORK AND SLIPPED ON COOLANT. STATES HE DIDN'T FALL BUT BEATRICE HIS BACK. Symptoms at onset: SHARP LOW BACK PAIN AND BURNING SENSATION IN BACK. Worse: EVERYTHING. WALKING, SITTING TOO LONG, LYING DOWN, STANDING, BENDING, LIFTING, TWISTING. Better: SITTING IN RECLINER IN POSITION, INVERSION TABLE - IT LOOSENS ME UP A LITTLE BIT TO HELP ME FUNCTION BUT NOT TO THE POINT I AM COMFORTABLE. STATES DR. VARGAS AND DR. CERVANTES BOTH TOLD HIM IT IS OK TO CONTINUE USING IT. Disturbed sleep: YES. Previous history/Previous treatment: BACK INJURY 1990 - FULLY RECOVERED. NO BACK SURGERY. NO BACK INJECTIONS. WAS TREATED BY A CHIROPRACTOR AT THAT TIME AND WENT BACK ONE TIME IN NOVEMBER 2019 FOR TINGLING DOWN THE BACK OF LEFT LEG FROM THE KNEE DOWN INTO THE FOOT - EVENTUALLY WENT AWAY AFTER ABOUT A MONTH. NO PHYSICAL THERAPY FOR BACK IN THE PAST. HAS BEEN USING AN INVERSION TABLE TWICE A DAY AT HOME SINCE HURT HIS BACK IN APR 2020. Treatment this episode: CONSULTS WITH [facility], DR. CERVANTES AND DR. VARGAS. PRESCRIBED CELABREX, NEUROTIN 4 TIMES A DAY AND MUSCLE RELAXER NEEDED. NO ADRIANNA'S. STATES DR. CERVANTES RECOMMENDED THEM BUT THEY HAVE NOT BEEN APPROVED. Coughing/sneezing/straining: POSITIVE. Gait: LIMPS. PATIENT REPORTS HIS LEFT LEG ISN'T WORKING RIGHT. STATES HE HAS TO MAKE IT WORK AND IF HE WALKS TOO LONG HE GETS A SHARP PAIN IN HIS LEFT HIP. TIME AND DISTANCE LIMITED. Difficulty initiating urinatin: NO. Accidents: NO. Unexplained weight loss: NO. Imaging: STUDY: MRI LUMBAR SPINE WITHOUT CONTRAST. REASON FOR EXAM: Male, 54 years old. LUMBAR STRAIN -- fall 1 month ago,. pain low back and left buttock. TECHNIQUE: Standardized fat and water weighted pulse sequences were. obtained in the sagittal and axial planes. COMPARISON: X-ray dated 04/27/2020. . FINDINGS: Normal lumbar lordosis. There is no substantial scoliosis. Normal conus. medullaris that terminate s at the L1. L1-2: There is moderate disc space narrowing and endplates spondylosis. Mild disc bulge with small (0.5 x 1.5 cm) superiorly directed left. paracentral extrusion without significant central canal or foraminal. stenosis. L2-3: There is moderate disc space narrowing and endplates spondylosis. Mild disc bulge and retrolisthesis without significant central canal or. foraminal stenosis. L3-4: There is moderate disc space narrowing and endplates spondylosis. Moderate disc bulge and minimal retrolisthesis without significant central. canal stenosis. There is mild right and mild left foraminal stenosis. L4-5: There is mild disc space narrowing and endplates spondylosis. Moderate disc bulge asymmetric to the right with moderate right foraminal. stenosis. No significant central canal or left foraminal stenosis. L5-S1: There is moderate disc space narrowing and endplates spondylosis. Moderate disc osteophyte complex and facet arthropathy asymmetric to the. right with moderate right foraminal stenosis. No significant central canal. or left foraminal stenosis. Normal visualized sacral ala. . MRI/Spine Lumbar (Routine). IMPRESSION: L1/L2: Small left paracentral extrusion without compression. . L4/L5: Moderate right foraminal stenosis. . L5/S1: Moderate right foraminal stenosis. . PMH: HTN. Recent major surgery: 2 RIGHT AND ONE L ROTATOR CUFF REPAIRS. RIGHT BICEPS REPAIR. OTHER: PATIENT REPORTS DR. CERVANTES SAID HE MIGHT NEED SURGERY BUT HE WANTED TO TRY INJECTIONS (SOMETHING LESS INVASIVE) FIRST AND DR. VARGAS AGREED. - Objective Sitting/Standing Posture: POOR. Lordosis: REDUCED. Lateral shift: NO. Relevant shift: N/A. Active Correction of posture: WORSE - MAKES IT REALLY REALLY TIGHT. Other Observations: INDEP GAIT INTO PT WITHOUT AN ASSISTIVE DEVICE WITH DECREASED CADANCE, DECREASED TRUNK ROTATION AND A MILD LIMP ON THE LLE. INDEP TRANSFER SIT TO STAND BUT UE DEPENDENT TO DO SO. Motor deficit: RIGHT LE: HIP 4-/5, KNEE 5/5, ANKLE 5/5. LLE: HIP 3-/5, KNEE 4-/5, ANKLE 5/5. Sensory deficit: DECREASED LIGHT TOUCH SENSATION OF LEFT LAT LEG AND FOOT COMPARED TO RIGHT. ROM deficit: TIGHT KASSY HS'S AND GASTROC SOLEUS COMPLEX'S. Reflexes: UNABLE TO ELICIT KASSY LE DTR'S. Dural Signs: NEGATIVE RIGHT AND POSITIVE L LE. Lumbar mvmt loss: flex - MOD - UE DEPENDENT TO RETURN TO UPRIGHT. ext - ANA. R SG - ANA. L SG - ANA. PATIENT C/O INCREASED PAIN WITH LUMBAR ROM TESTING ALL PLANES AND REPORTS A FEAR OF GETTING A WARNING SHOT WHEN HE MOVES HIS BACK. Core strength: POOR. Palpation: TENDERNESS WITH LIGHT PALPATION OF KASSY LUMBOSACRAL AND LEFT BUTTOCK REGIONS. - Goals Goal 1:: DECREASE C/O LOW BACK AND LLE SX'S. Goal Time Frame: 4-6 Weeks Goal 2:: IMPROVE PERSONAL CARE, LIFTING, WALKING, SITTING, STANDING, SLEEP, SOCIAL LIFE, TRAVEL, HOMEMAKING AND WORK FUNCTION. Goal Time Frame: 4-6 Weeks Goal 3:: INSTRUCT IN PROPHYLAXIS Goal Time Frame: 4-6 Weeks - Anticipated Interventions Patient/Client Instruction: Educate patient on: Condition, Plan of Care, Risk Factors, Benefits of Fitness Program For the Purpose of:: To improve self management Therapeutic Exercise to Include: Strength training, Body mechanics, Postural training, Flexibilty training, Neuromotor development, In an aquatic setting, Dynamic Lumbar Stabilization For the Purpose of:: To decrease pain, To increase ROM, To improve muscle performance and motor function, To increase tolerance to activity/condition/position, To improve ability of physical actions for home/community/work/leisure Thank you for the opportunity to evaluate your patient. For Medicare and Medicare HMO plans, please review the plan of care and approve it. It will need to be FAXED BACK to us at [phone] for Medicare purposes. For Medicare only, by signing this I certify the plan of care. Please let me know if there are questions or concerns regarding this plan of care. Physician Signature: Date:
== END 2020-10-27 19:00 | disposition home or self-care (01) ==
LOC: PT 10:46
PROVIDERS: PCP Family Medicine; Referring Provider Anesthesiology Pain Medicine; Visit Provider Anesthesiology Pain Medicine
DX: S39.012D Strain of muscle, fascia and tendon of lower back, subsequent encounter (principal)
CPT/HCPCS: 97162

== ENCOUNTER → 2021-08-25 20:26 | Outpatient (CLI) | payer BC, SELFPAY | LOC: SL 20:26 | PROVIDERS: PCP Family Medicine; Visit Provider Family Medicine | DX: R53.83 Other fatigue (principal); R06.81 Apnea, not elsewhere classified | CPT/HCPCS: 95811 ==

== ENCOUNTER 2021-10-27 12:20 | Outpatient (CLI) | payer BC, SELFPAY | END 2021-10-27 23:59 | disposition home or self-care (01) | LOC: SL 12:21 | PROVIDERS: PCP Family Medicine; Visit Provider Family Medicine | DX: Z00.00 Encounter for general adult medical examination without abnormal findings (principal) ==

== ENCOUNTER → 2022-11-10 | Outpatient (CLI) | payer BC, SELFPAY ==
--- NOTE | 2022-11-10 09:05 | ART_ITS ---
Reason For Study: Leg pain Procedure A bilateral lower extremity continuous wave Doppler with analog waveform analysis and ankle brachial indexes. Left Segmental Pressures Left brachial= 125mmHg. Left posterior tibial artery = 113mmHg. Left dorsalis pedis artery = 113mmHg. Left digit = 87 mmHg. The left dorsalis pedis waveforms are biphasic. The left posterior tibial artery waveforms are triphasic. Right Segmental Pressures Right brachial= 114mmHg. Right posterior tibial artery = 115mmHg. Right dorsalis pedis artery = 123mmHg. Right digit = 96 mmHg. The right dorsalis pedis waveforms are triphasic. The right posterior tibial artery waveforms are triphasic. Indices The right ankle brachial index by the dorsalis pedis is 0.98. The right ankle brachial index by the posterior tibial artery is 0.92. The right digital-brachial index is 0.77. The left ankle brachial index by the dorsalis pedis is 0.90. The left ankle brachial index by the posterior tibial artery is 0.90. The left digital-brachial index is 0.70. VL/Ankle Brachial Index Interpretation Summary Abnormal right dorsalis pedis and posterior tibialis ankle-brachial indices of 0.98 and 0.92 respectively with triphasic Doppler waveforms noted consistent with minimal occ lusive disease. Abnormal left dorsalis pedis and posterior tibialis ankle-brachial indices of 0 .9 and 0.9 respectively with biphasic waveforms at the dorsalis pedis and triphasic wavefo pedro at the posterior tibialis again consistent with mild or minimal occlusive disease. Ordering Physician: Bonita Gaines Referring Physician: Bonita Gaines Performed By: Julissa Ferrer RVT
== END | disposition home or self-care (01) ==
LOC: CVS 09:01
PROVIDERS: PCP Family Medicine; Referring Provider Family Medicine; Visit Provider Family Medicine
DX: M79.604 Pain in right leg (principal); I73.9 Peripheral vascular disease, unspecified; M79.605 Pain in left leg
CPT/HCPCS: 93922

== ENCOUNTER 2023-09-26 15:28 | Emergency (ER) | payer SELFPAY ==
[2023-09-26 15:28] VITALS: BP 114/76; PULSE 86; RESP 16; TEMP 35.8; O2SAT 94
[2023-09-26 16:17] LABS: Absolute Lymphocyte Count 1.82 X10^3/uL (0.83-4.51); Basophil# 0.05 X10^3/uL; Basophil% 0.5 % (0-1); Eosinophil# 0.14 X10^3/uL; Eosinophils% 1.5 % (0-5); Hematocrit 44.6 % (40-54); Lymphocyte # 1.82 X10^3/ul (0.83-4.51); Lymphocyte % 18.9 % (19-41); Mean Corp Hgb Conc 31.4 g/dL (32-36); Mean Corpuscular Hgb 28.6 pg (27.0-32.0); Mean Platelet Vol. 10.4 fl (6.2-12.0); Monocyte# 0.59 X10^3/uL; Monocyte% 6.1 % (0-10); NRBC Flagged by Analyzer 0 % (0-5); Neutrophil # 6.99 X10^3/uL (2.7-7.7); Neutrophil % 72.8 % (47-70); Platelet Count 290 K/mm3 (150-450); RBC Distribution Width CV 13.9 % (11.6-14.6); RBC Distribution Width SD 46.7 fl (35.1-43.9); White Blood Count 9.6 K/mm3 (4.4-11.0)
[2023-09-26 16:48] LABS: ALB/GLOB Ratio 1.3 RATIO (0.9-2.4); AST(SGOT) 18 U/L (15-37); Alanine Aminotransfer ALT/SGPT 27 U/L (16-61); Albumin, Serum 3.8 g/dL (3.2-5.0); Alkaline Phosphatase 124 U/L (45-117); Anion Gap 4 (5-15); BUN 13 mg/dL (7-18); BUN/Creat Ratio 8.3 RATIO (10-20); Calcium,Total 9.5 mg/dL (8.5-10.1); Chloride 110 mmol/L (98-107); Creatinine, Serum 1.57 mg/dL (0.70-1.30); EST Glomerular Filtration Rate 49 mL/min (>60); Est Glom Filt Rate - Afr Amer 59 mL/min (>60); Globulin 2.9 g/dL (2.2-4.2); Glucose 125 mg/dL (74-106); Potassium 3.9 mmol/L (3.5-5.1); Protein, Total 6.7 g/dL (6.4-8.2); Sodium Level 140 mmol/L (136-145)
[2023-09-26] MEDS: 0.9% Normal Saline (1000mL) 1,000 ML 999 ML IV ×2 (17:52→18:46)
--- OUTSIDE RECORDS SUMMARY | 2023-09-26 18:41 | XMS RPT_ITS | CCD ---
Author Name Unknown Address [id number] [place] [address] Organization [facility] Care Team Providers Care Emergency Service Restorer Name Role Phone MELIDA SAINZ Unavailable Unavailable NO FAMILY PHYSICIAN, [phone] Unavailable Unavail able DAVID FLORES MD Unavailable Unavailable DAVID FLORES MD Unavailable Unavailable NO, DOCTOR ON Unavailable Unavailable DAVID FLORES MD Unavailable Unavailable NO, DOCTOR ON Unavailable Unavailable Allergies Allergy Classification Reported Allergen(s) Allergy Type Date of Onset Reaction(s) Facility (1 source) Azithromycin Drug Allergy [facility] Repository Results Test Name Value Interpretation Reference Range Facil ity Encounters Encounter Date Encounter Type Care Provider Facility Start: 08-27-2018 End: 08-28-2018 [facility] Start: 05-01-2017 End: 05-01-2017 Emergency department patient visit MELIDA EMELI Facility:[id number] Payers Date Payer Category Payer Unknown [id number] Worker's Compensation [id number] Summary Purpose Family History No Family History Records FoundNo Family History Records Found Advance Directives No Advanced Directives Records FoundNo Advanced Directives Records Found Additional Source Comments (unrecognized sect ion and content) No Status Records FoundNo Status Records Found INFORMATION SOURCE (unrecogn ized section and content) DATE CREATED AUTHOR AUTHOR'S ORGANIZ ATION 09/14/2018 [facility] FOR RECORDS PERTAINING TO PATIENTS WHO ARE OR HAVE BEEN ENROLLED IN A CHEMICAL DEPENDENCY/SUBSTANCEABUSE PROGRAM, SOME INFORMATION MAY BE OMITTED. This clinical summary was aggregated from multiple sources. Caution should be exercised in using it in the provision of clinical care. This summary normalizes information from multiple sources, and as a consequence, information in this document may materially change the coding, format and clinical context of patient data. In addition, data may be omitted in some cases. CLINICAL DECISIONS SHOULD BE BASED ON THE PRIMARY CLINICAL RECORDS. [facility]. provides no warranty or guarantee of the accuracy or completeness of information in this document.
[2023-09-26 18:58] LABS: Bacteria 0 SEEN /hpf (None Seen); Mucous, Urine 0 SEEN /hpf (<or=2+)
[2023-09-26 18:59] LABS: Color, Urine Yellow (Yellow); Glucose, Dipstick Normal (Normal); Ketone-Dipstick Negative (Negative); Leukocyte Esterase-Dipstick 25 /ul (Negative); Nitrite-Dipstick Negative (Negative); Occult Blood-Urine 250 /ul (Negative); Protein-Dipstick 30 mg/dl (Negative); Specific Gravity, Urine 1.015 (1.002-1.030); Urine Bilirubin Dipstick Negative (Negative); Urine Clarity Clear (Clear); Urine Urobilinogen Normal (Normal)
--- NOTE | 2023-09-26 19:17 | CT_ITS ---
STUDY: CT ABDOMEN AND PELVIS WITHOUT CONTRAST REASON FOR EXAM: Male, 57 years old. right flank pain RADIATION DOSAGE (If Supplied By Facility): CTDIvol = ( 11.30 ) mGy, DLP = ( 570.22 ) mGycm TECHNIQUE: Transaxial images were obtained from the dome of the diaphragm to the symphysis pubis without oral contrast, and without intravenous contrast. Sagittal and coronal images were reconstructed. Individualized dose optimization techniques were used for this CT. COMPARISON: None. FINDINGS: The visualized lung bases are unremarkable. The visualized portions of the heart are within normal limits. Normal liver. Normal gallbladder and extrahepatic biliary system. Normal spleen. Normal pancreas. Normal bilateral adrenal glands. Normal right kidney. There is a 3 mm stone at the proximal right ureter Normal left kidney. Normal visualized stomach. Normal small intestine. Normal colon. The appendix is visualized containing appendicoliths. Calcified abdominal aorta. Normal inferior vena cava. Normal retroperitoneum. Normal urinary bladder. Normal abdominal wall. Normal osseous structures. CT/Abdomen/Pelvis without Cont IMPRESSION: Small right proximal ureteral stone. Electronically Signed: Humza Jones DO at 20:14 [facility] Reading Location ID and State: [facility] / [place] Tel [phone], Service support ,
--- NOTE | 2023-09-26 19:18 | EDS_ITS ---
HPI History of Present Illness Chief Complaint: Flank Pain Narrative Narrative: 57-year-old male presenting with right flank pain. This started earlier in the afternoon. He thought that he just tweaked it because he has back problems. He states he did not think anything other than the pain came back and was very sharp and radiated to the inguinal area. He was nauseous and vomiting states he was very sweaty. Patient states he could not find a position of comfort. No history of kidney stones. No history of UTIs. No history of trauma. [facility] Medical History (Updated 09/26/23 @ 21:[address] Ashish Price, DO) Back pain Knee pain Shoulder pain Home Medications omeprazole 20 mg tablet,delayed release 20 mg PO DAILY 04/27/20 [History Last Taken Unknown] tizanidine 2 mg tablet 2 mg PO PRN PRN Muscle Spasm #30 tabs 05/07/20 [Rx Last Taken Unknown] celecoxib 200 mg capsule applicator PO 12/12/22 [History Last Taken Unknown] gabapentin 600 mg tablet 600 mg PO 12/12/22 [History Last Taken Unknown] sildenafil 100 mg tablet ea PO 12/12/22 [History Last Taken Unknown] aspirin 81 mg tablet,delayed release (Adult Low Dose Aspirin) 81 mg PO DAILY 01/23/23 [History Last Taken Unknown] cilostazol 100 mg tablet 100 mg PO BID #180 tabs 02/08/23 [Rx Last Taken Unknown] atorvastatin 40 mg tablet 40 mg PO DAILY #90 tabs 06/01/23 [Rx Last Taken Unkn own] hydrocodone-acetaminophen 5-325mg 5mg-325mg 1 tab PO Q6H PRN PRN Pain 3 days #12 TABLETS 09/26/23 [Rx Last Taken Unknown] ondansetron 4 mg disintegrating tablet 4 mg PO Q8H PRN PRN Nausea #14 tabs 09/26/23 [Rx Last Taken Unknown] Allergy/AdvReac Type Severity Reaction Status Date / Time erythromycin base Allergy Hives Verified 01/23/23 14:55 Social History Smoking Status: Current every day smoker tobacco type: cigarettes Tobacco: How many years used: 40 alcohol intake: former ROS ROS ED Constitutional Constitutional ED: Reports sweats; Denies chills or fever(s) Eyes Eyes: Denies blurry vision or change in vision ENT ENT ED: Denies ear pain or sore throat Cardiovascular Cardiovascular: Denies chest pain, palpitations or racing heartbeat Respiratory/Chest Respiratory/Chest: Denies cough, dyspnea or sputum Gastrointestinal Gastrointestinal: Reports abdominal pain, nausea and vomiting; Denies constipation or diarrhea Genitourinary Genitourinary ED: Denies dysuria, hematuria or urinary frequency Musculoskeletal Musculoskeletal: Reports back pain; Denies arthralgias, myalgias or neck pain Integumentary Denies abscess, Abrasions or rash Neurologic Neurologic: Denies headache(s), paresthesias or weakness Psychiatric Psychiatric: Denies anxiety, depression, suicidal ideation or suicidal thoughts Endocrine Endocrinology: Denies polydipsia or polyuria EXAM Physical Exam Const Vital Signs: 09/26/23 15:28 09/26/23 19:26 Temperature 96.4 F L 97.8 F Temperature Source Temporal Oral Pulse Rate 86 78 Respiratory Rate 16 16 Blood Pressure 114/76 119/75 Blood Pressure Mean 88 89 Pulse Ox 94 93 Oxygen Delivery Method Room Air Room Air Positive well nourished General Appearance ED: NAD; Negative for pallor HEENT Reports moist mucous membranes normocephalic and atraumatic Resp normal respiratory effort Cardio regular rate and regular rhythm GI Palpation: tender RLQ no CVA tenderness Extremity normal to inspection Neuro oriented x3 and CN's II-XII intact bilaterally Sensorium / Orientation: alert Motor Exam: strength 5/5 throughout Psych mental status grossly normal Skin General Skin Exam: Negative for jaundice or pallor MDM MDM MDM Narrative Medical decision making narrative: Patient presented with right flank pain which is now turned to the right lower abdominal pain. Differential includes UTI, pyelonephritis, kidney stone, ureteral calculi, colitis, diverticulitis. CBC will be obtained to assess white blood cell count, hemoglobin, platelets. CMP to assess liver function, renal function, electrolytes, glucose. Urinalysis to assess for UTI and occult blood. Patient medicated with morphine and Zofran. CBC shows normal white blood cell count at 9.6. Hemoglobin 14.0. Platelets are normal at 290. Creatinine slightly elevated today at 1.57 and patient was given IV fluids. Electrolytes are normal. LFTs are normal. Urinalysis negative for infection but does show occult blood. Patient with improvement after morphine and Zofran. I did withhold Toradol given his renal insufficiency which appears new. This is in comparison to [address] of the abdomen pelvis without contrast shows a very small 3 mm right-sided proximal ureteral stone. Patient will be given O'Brien and Zofran for home. He is can follow-up with urology. Return precautions discussed. Impression: 1. 3 mm right ureteral stone 2. Hematuria 3. Nausea/vomiting Lab Data Attestation: I reviewed the patient's lab results. Labs: Laboratory Results - last 24 hr 09/26/23 09/26/23 15:58 18:50 WBC 9.6 RBC 4.90 Hgb 14.0 Hct 44.6 MCV 91.0 MCH 28.6 MCHC 31.4 L RDW Std Deviation 46.7 H RDW Coeff of [place] 13.9 Plt Count 290 MPV 10.4 Immature Gran % (Auto) 0.200 Neut % (Auto) 72.8 H Lymph % (Auto) 18.9 L Person % (Auto) 6.1 Eos % (Auto) 1.5 Baso % (Auto) 0.5 Absolute Neuts (auto) 7.0 Absolute Lymphs (auto) 1.82 Nucleated RBC % 0 Sodium 140 Potassium 3.9 Chloride 110 H Carbon Dioxide 26.0 Anion Gap 4 L BUN 13 Creatinine 1.57 H Est GFR (MDRD) Af Amer 59 L Est GFR (MDRD) Non-Af 49 L BUN/Creatinine Ratio 8.3 L Glucose 125 H Calcium 9.5 Total Bilirubin 0.80 AST 18 ALT 27 Alkaline Phosphatase 124 H Total Protein 6.7 Albumin 3.8 Globulin 2.9 Albumin/Globulin Ratio 1.3 Urine Color Yellow Urine Clarity Clear Urine pH 6.0 Ur Specific [place] 1.015 Urine Protein 30 H Urine Glucose (UA) Normal Urine Ketones Negative Urine Occult Blood 250 H Urine Nitrite Negative Urine Bilirubin Negative Urine Urobilinogen Normal Ur Leukocyte Esterase 25 H Urine RBC 10-25 SEEN Urine WBC 0-5 SEEN Ur Squamous Epith Cells 0-5 SEEN Urine Bacteria 0 SEEN Urine Mucus 0 SEEN Radiography Diagnostic Testing: Clinical Impression(s) from Imaging Studies Abdomen/Pelvis CT 09/26/23 19:17 IMPRESSION: Small right proximal ureteral stone. Electronically Signed: Humza Jones DO at 20:14 EST Reading Location ID and State: [facility] / [place] Tel [phone], Service support , Discharge Plan Triage Chief Complaint: Flank Pain ED Provider: Ashish Price Dx/Rx/DC Orders Instructions: ED Kidney Stone with Pain Prescriptions: New hydrocodone-acetaminophen 5-325 mg tablet 1 tab PO Q6H PRN PRN (Reason: Pain) 3 Days Qty: 12 0RF ondansetron 4 mg tablet,disintegrating 4 mg PO Q8H PRN PRN (Reason: Nausea) Qty: 14 0RF No Action tizanidine 2 mg tablet 2 mg PO PRN PRN (Reason: Muscle Spasm) Qty: 30 0RF Rx Instructions: Take 1-2 tabs every 8 hours as needed for muscle spasms gabapentin 600 mg tablet 600 mg PO celecoxib 200 mg capsule PO sildenafil 100 mg tablet PO Patient Comments: TAKE 1/2 (ONE-HALF) TO 1 (ONE) TABLET BY MOUTH 30-60 MINUTES PRIOR TO INTERCOURSE omeprazole 20 MG tablet,delayed release (DR/EC) 20 mg PO DAILY cilostazol 100 mg tablet 100 mg PO BID Qty: 180 3RF atorvastatin 40 mg tablet 40 mg PO DAILY Qty: 90 3RF Primary Care Provider: Bonita Gaines Referrals: [facility] [Primary Care Provider[facility] - [facility] Staff[facility] - Disposition Disposition: Home, Self Care Capacity Legal [employer] Reflex Medical hold order details:: IF a medical hold is selected below, a suggested order for a MEDICAL HOLD will reflex upon signing the document. Next of kin: [place] law dictates a PRIORITY LIST for identifying legal decision-maker/legal next of kin in the following order (LNOK): 1st: The patient?s legal guardian, if any 2nd: The patient's spouse (if status is questionable, consult Risk Management) 3rd: The patient?s adult child(shakeel) (majority, if multiple children) 4th: The patient?s parents 5th: The patient?s adult siblings (majority, if multiple children siblings)
[2023-09-26] MEDS: Ondansetron 4 MG/2 ML Vial IV (19:19)
[2023-09-26] MEDS: Morphine 4 MG/ML Syringe IV (19:19)
[2023-09-26 19:23] VITALS: BMI 27.8
[2023-09-26 19:26] VITALS: BP 119/75; PULSE 78; RESP 16; TEMP 36.6; O2SAT 93
[2023-09-26 19:52] LABS: Red Blood Cells-Urine 10-25 SEEN /hpf (0-5); Squamous Epithelial Cells - UA 0-5 SEEN /hpf (0-5); White Blood Cells 0-5 SEEN /hpf (0-5)
[2023-09-26] MEDS: HYDROcodone Bitartrate/Apap 5/325 Tablet PO (21:26)
[2023-09-26 22:19] VITALS: BP 140/78; PULSE 70; RESP 16; TEMP 36.6; O2SAT 94
== END 2023-09-26 22:21 | disposition home or self-care (01) ==
PROVIDERS: Emergency Provider Student in an Organized Health Care Education/Training Program; PCP Family Medicine; Visit Provider Student in an Organized Health Care Education/Training Program
DX: N20.1 Calculus of ureter (principal); F17.210 Nicotine dependence, cigarettes, uncomplicated
CPT/HCPCS: 74176; 80053; 81001; 85025; 96361; 96374; 96375; 99284; J7030; A4216; J2405